=== PATIENT | male | born 1985 | race Caucasian/White ===

== ENCOUNTER 2016-12-15 01:51 | Emergency (ER) | payer OTHER ==
[~2016-12-15] VITALS: Ht 188 cm; Wt 90.5 kg
[~2016-12-15 01:51] MED LIST: NOHOMEMEDS; ULTRAM50 MG PO
[2016-12-15 02:41] LABS: HEMATOCRIT 40.6 % (38.0-50.0); MCH 30.9 PG (29.0-34.0); MCHC 33.5 G/DL (30.0-36.0); MCV 92.3 FL (86-99); PLATELET COUNT 196 K/uL (156-360); RBC DIS.WIDTH-CV 13.5 % (11.8-14.6); RBC DIS.WIDTH-SD 45.6 % (39-53)
[2016-12-15 02:48] LABS: INTER. NORMALIZED RATIO 4.4; PROTHROMBIN TIME 51.2 SEC (10.2-12.9)
[2016-12-15 02:50] LABS: PTT 61.8 SEC (25-37)
[2016-12-15 02:51] LABS: CHLORIDE 100 mEq/L (99-109); POTASSIUM 3.9 mEq/L (3.7-5.4); SODIUM 134 mEq/L (136-147)
[2016-12-15 02:54] LABS: GLUCOSE 108 mg/dL (70-99)
[2016-12-15 02:55] LABS: ANION GAP 8 MEQ/L (2-14)
[2016-12-15 02:56] LABS: TOTAL BILIRUBIN 0.8 mg/dL (0.0-1.0)
[2016-12-15 02:57] LABS: ALKALINE PHOSPHATASE 121 IU/L (3-129)
[2016-12-15 02:58] LABS: GFR ESTIMATE (CALCULATED) > 59 mL/min/
[2016-12-15 02:59] LABS: UREA NITROGEN (BUN) 11 mg/dL (9-23)
[2016-12-15 03:02] LABS: TROP-I INTERPRETATION NEGATIVE; TROPONIN-I < 0.01 ng/mL (0.0-0.30)
[2016-12-15] MEDS ORDERED: PREDNISONE10 MG PO (04:37)
[2016-12-15 04:47] VITALS: BP 130/78
== END 2016-12-15 04:48 | disposition home or self-care (01) ==
LOC: EME 01:51
PROVIDERS: Emergency Medicine
DX: R04.2 Hemoptysis (principal); Z79.01 Long term (current) use of anticoagulants; Z95.2 Presence of prosthetic heart valve; S80.812A Abrasion, left lower leg, initial encounter; X58.XXXA Exposure to other specified factors, initial encounter; J98.11 Atelectasis; F17.200 Nicotine dependence, unspecified, uncomplicated
CPT/HCPCS: 71275; 80053; 84484; 85027; 85610; 85730; 93005; 99281; 99283; J7030; J7512